=== PATIENT | female | born 1955 | race Caucasian/White ===

== ENCOUNTER 2022-12-05 11:57 | Day surgery (SDC) | payer MEDICARE ==
[2022-12-03 10:47] LABS: BASOPHILS # (AUTO) 0.1 X10'3 (0-0.2); BASOPHILS % (AUTO) 1.1 % (0-1); EOSINOPHILS # (AUTO) 0.2 X10'3 (0-0.9); EOSINOPHILS % (AUTO) 3.7 % (0-6); LYMPHOCYTES # (AUTO) 2.4 X10'3 (1.1-4.8); MEAN CORPUSCULAR HEMOGLOBIN 27.1 PG (27.0-31.0); MEAN CORPUSCULAR HGB CONC 32.9 g/dL (33.0-36.5); MEAN CORPUSCULAR VOLUME 82.3 FL (78-98); MEAN PLATELET VOLUME 8.2 FL (7.4-10.4); MONOCYTES # (AUTO) 0.6 X10'3 (0-0.9); MONOCYTES % (AUTO) 9.2 % (2-12); NEUTROPHILS # (AUTO) 2.9 X10'3 (1.8-7.7); PRE OP HEMATOCRIT 39.8 % (35.0-45.0); PRE OP HEMOGLOBIN 13.1 g/dL (12.0-16.0); PRE OP PLATELET COUNT 304 X10'3 (140-440); RED BLOOD COUNT 4.83 X10'6 (4.20-5.60); RED CELL DISTRIBUTION WIDTH 13.7 % (11.5-14.5)
[2022-12-03 10:53] LABS: CLARITY,URINE CLEAR (Clear); COLOR,URINE YELLOW (Yellow); GLUCOSE, URINE NEGATIVE (Neg); KETONES,URINE NEGATIVE (Neg); LEUKOCYTE ESTERASE ,URINE TRACE (Neg); NITRITES, URINE NEGATIVE (Neg); OCCULT BLOOD,URINE NEGATIVE (Neg); PROTEIN,URINE NEGATIVE (Neg); UROBILINOGEN,URINE 0.2 E.U/dL (0.2-1.0)
[2022-12-03 11:10] LABS: ALBUMIN 4.1 G/DL (3.4-5.0); ALBUMIN/GLOBULIN RATIO 1.3 (1.1-1.5); ALKALINE PHOSPHATASE 113 IU/L (46-116); BLOOD UREA NITROGEN 24 MG/DL (7-18); CALCIUM 9.5 MG/DL (8.5-10.1); CHLORIDE 104 MMOL/L (99-107); CREATININE 0.89 MG/DL (0.40-0.90); PRE OP ALT 35 U/L (30-65); PRE OP ANION GAP 7 (8-16); PRE OP AST 25 U/L (10-37); PRE OP BILIRUB, TOTAL 0.3 MG/DL (0.0-1.0); PRE OP GLUCOSE 99 MG/DL (70-104); PRE OP POTASSIUM 4.2 MMOL/L (3.4-5.1); PRE OP SODIUM 139 MMOL/L (135-145); TOTAL CARBON DIOXIDE 28.5 MMOL/L (24-32); TOTAL PROTEIN 7.3 G/DL (6.4-8.2); eGFR 63 ML/MIN
[2022-12-03 11:13] LABS: UA COLLECTION TYPE CLN CATCH MIDSTREAM
[2022-12-03 11:17] LABS: SQUAMOUS EPITHELIAL CELL,UR FEW /LPF (FEW)
[2022-12-03 11:19] LABS: HYALINE CASTS 0-3 /LPF (NEGATIVE); MUCUS STRANDS FEW /LPF (Neg); TRANSITIONAL EPI CELLS,URINE FEW /HPF
[2022-12-03 11:20] LABS: BACTERIA,URINE FEW /HPF (Neg); RBC,URINE 0-2 /HPF (0-2); WBC,URINE 0-4 /HPF (0-4)
[~2022-12-05] VITALS: Ht 165.1 cm; Wt 88.5 kg
[~2022-12-05 11:57] MED LIST: DILT-35 PO; HYDR-3972 PO; LISI10TA27 PO; cefazolin 2gm/D5W 100mL 100 ML IV ONE; famotidine 20mg tablet PO ONE; ringers solution, lacted 1,000 ML IV SCH
[2022-12-05 13:00] VITALS: BP 155/97
[2022-12-05] MEDS ORDERED: BUPIVAcaine/PF 2.5 mg/ml (0.25%) 30ml vial ONE (14:16)
[2022-12-05] MEDS ORDERED: morphine 4 MG/ML inj SYRINge IV PRN (15:40)
[2022-12-05] MEDS ORDERED: ringers solution, lacted 1,000 ML IV SCH (15:40)
[2022-12-05] MEDS ORDERED: acetaminophen 1,000mg/100ml IV 100 ML IV PRN (15:40)
[2022-12-05] MEDS ORDERED: morphine 2 MG/ML inj. syringe IV PRN (15:40)
[2022-12-05] MEDS ORDERED: proCHLORperazine 10 MG/2 ml inj IV PRN (15:40)
[2022-12-05] MEDS ORDERED: meperidine/PF 25mg/ml syringe IV PRN ×3 (15:40)
[2022-12-05] MEDS ORDERED: labetalol 20mg/4ml (5mg/ml) syringe IV PRN (15:40)
[2022-12-05] MEDS ORDERED: ondansetron/PF 4mg/2ml inj IV PRN (15:40)
[2022-12-05] MEDS ORDERED: hydrALAZINE 20mg/ml inj. IV PRN (15:40)
[2022-12-05] MEDS ORDERED: cloNIDine hcl/PF 100mcg/ml inj ONE (16:39)
[2022-12-05] MEDS ORDERED: midazolam 1 mg/ML 2ml injection ONE (16:47)
[2022-12-05] MEDS ORDERED: fentaNYL /PF 50mcg/ml 5ml ampule ONE (16:48)
[2022-12-05] MEDS ORDERED: LIDOcaine 2% (20mg/ml) 5ml vial ONE (17:11)
[2022-12-05] MEDS ORDERED: dexamethasone sod phosphate 4mg/ml inj. ONE (17:11)
[2022-12-05] MEDS ORDERED: ondansetron/PF 4mg/2ml inj ONE (17:11)
[2022-12-05] MEDS ORDERED: ROPIVAcaine 0.5% (5mg/ml) 30ml vial ONE (17:11)
[2022-12-05] MEDS ORDERED: propofol inj 20 ML IV ONE (17:11)
[2022-12-05] MEDS ORDERED: mupirocin 2% ointment 22GM ONE (17:43)
[2022-12-05] MEDS ORDERED: bacitracin ointment unit dose packet TP ONE (17:50)
[2022-12-05 18:20] VITALS: BP 160/93
--- NOTE | 2022-12-05 18:20 | NUR ---
Received from OR via [facility] , accompanied by Anesthesiologist AURE and report given by Anesthesiolgist. PATIENT WITH 20GPIV IN RIGHT UE RUNNING LR AT 100. DENIES PAIN. FOOT GATCHED IN BED. SPLINT IN PLACE THAT IS CDI. + CAP REFILL TO TOES. ALL PWD. Addendum: 12/05/22 at 1833 by Ron Hawley RN, RN Amended: Links added.
[2022-12-05 18:30] VITALS: BP 144/80
[2022-12-05 18:40] VITALS: BP 155/89
[2022-12-05 18:50] VITALS: BP 148/78
[2022-12-05 19:00] VITALS: BP 150/82
--- NOTE | 2022-12-05 19:10 | NUR ---
ABLE TO SAFELY AMBULATE AND TRANSFER SELF. IV TAKEN OUT WITHOUT ANY COMPLICATIONS. ALL DISCHARGE INSTRUCTIONS COVERED WITH PATIENT AND ALL QUESTIONS ANSWERED. PATIENT TAKEN OUT VIA WHEELCHAIR TO PERSONAL VEHICLE WHERE FAMILY/FRIEND DROVE PATIENT HOME. Addendum: 12/05/22 at 1911 by Ron Hawley RN, RN Amended: Links added.
== END 2022-12-05 19:10 | disposition home or self-care (01) ==
LOC: PAS 11:57
PROVIDERS: ATTEND Podiatrist Foot & Ankle Surgery
DX: S92.351A Displaced fracture of fifth metatarsal bone, right foot, initial encounter for closed fracture (principal); S92.341A Displaced fracture of fourth metatarsal bone, right foot, initial encounter for closed fracture; M19.071 Primary osteoarthritis, right ankle and foot; I10 Essential (primary) hypertension; J45.909 Unspecified asthma, uncomplicated; F41.9 Anxiety disorder, unspecified; G89.18 Other acute postprocedural pain; Z88.1 Allergy status to other antibiotic agents; Z79.82 Long term (current) use of aspirin; Z79.899 Other long term (current) drug therapy; Z72.89 Other problems related to lifestyle; Z90.710 Acquired absence of both cervix and uterus; Z96.651 Presence of right artificial knee joint; Z96.661 Presence of right artificial ankle joint; Z98.890 Other specified postprocedural states; Z87.11 Personal history of peptic ulcer disease; X58.XXXA Exposure to other specified factors, initial encounter; Y93.89 Activity, other specified; Y92.89 Other specified places as the place of occurrence of the external cause; Y99.8 Other external cause status
CPT/HCPCS: 28485; 36415; 64445; 73620; 80053; 81001; 82948; 85025; 87088; 93005; A6222; C1713; J0690; J0735; J1100; J2250; J2405; J2704; J2795; J3010; J3490; J7030; J7120; Z7506; Z7508; Z7512; 76000; A4618; A6253; A6449; A7000

== ENCOUNTER 2024-04-29 11:08 | Outpatient (CLI) | payer MEDICARE ==
[~2024-04-29 11:08] MED LIST changes: -cefazolin 2gm/D5W 100mL 100 ML IV ONE; -famotidine 20mg tablet PO ONE; -ringers solution, lacted 1,000 ML IV SCH
== END 2024-04-29 23:59 | disposition home or self-care (01) ==
LOC: MRI02 11:08
PROVIDERS: ATTEND Anesthesiology
DX: M51.17 Intervertebral disc disorders with radiculopathy, lumbosacral region (principal); M47.27 Other spondylosis with radiculopathy, lumbosacral region; M43.16 Spondylolisthesis, lumbar region; M48.07 Spinal stenosis, lumbosacral region
CPT/HCPCS: 72148